=== PATIENT | female | born 1975 | race Hispanic/Latino ===

== ENCOUNTER 2020-02-28 06:37 | Inpatient (IN) | payer MEDICAID, OTHER ==
[~2020-02-28] VITALS: Ht 157.5 cm; Wt 83.0 kg
[~2020-02-28 06:37] MED LIST: PREN-147 PO
[2020-02-28 07:31] LABS: BASOPHILS % (AUTO) 0.3 % (0.0-5.0); HEMATOCRIT 27.5 % (36-48); LYMPHOCYTES % (AUTO) 21.7 % (21.0-51.0); MEAN CORPUSCULAR HEMOGLOBIN 23.5 pg (27.0-33.0); MEAN CORPUSCULAR VOLUME 73.3 fL (79-99); MONOCYTES % (AUTO) 7.1 % (3.0-13.0); NEUTROPHILS % (AUTO) 69.6 % (40.0-77.0); PLATELET COUNT (AUTO) 145 K/uL (130-400); RED BLOOD CELL COUNT(AUTO) 3.75 MIL/uL (4.00-5.50); RED CELL DISTRIBUTION WIDTH 16.1 % (11.0-15.5)
[2020-02-28 07:41] LABS: RAPID GROUP A STREP NEGATIVE (NEGATIVE)
[2020-02-28] MEDS ORDERED: ACETAMINOPHEN EXTRA STRENGTH 500 MG TABLET ONE (07:43)
[2020-02-28 07:44] LABS: INR 1.06 (0.85-1.15); PARTIAL THROMBOPLASTIN TIME 29.4 SEC (26.3-35.5); PROTHROMBIN TIME 11.4 SEC (9.6-11.6)
[2020-02-28 07:51] LABS: ALANINE AMINOTRANSFERASE 60 U/L (12-78); ALBUMIN 3.5 g/dL (3.5-5.0); ASPARTATE AMINOTRANSFERASE 58 U/L (10-37); BILIRUBIN,TOTAL 0.6 mg/dL (0.2-1.0); CARBON DIOXIDE 23 mmol/L (21-32); CHLORIDE 95 mmol/L (101-111); CREATINE KINASE, TOTAL 71 U/L (21-232); CREATININE 1.1 mg/dL (0.5-1.5); GLOMERULAR FILTR. RATE CALC 58 mL/min (>60); GLUCOSE,RANDOM 126 mg/dL (70-105); MYOGLOBIN 28 ng/mL (10-92); SODIUM SERUM 129 mmol/L (136-145); TOTAL PROTEIN, SERUM 7.6 g/dL (6.0-8.3); TROPONIN I < 0.04 ng/mL (0.00-0.06); UREA NITROGEN, BLOOD 13 mg/dL (7-18)
[2020-02-28 08:08] LABS: POTASSIUM 2.8 mmol/L (3.5-5.1)
[2020-02-28 08:14] LABS: APPEARANCE,URINE Cloudy (CLEAR); BILIRUBIN,URINE Small (NEGATIVE); COLOR,URINE Dark Yellow (YELLOW); GLUCOSE, URINE (UA) Negative (NEGATIVE); KETONES,URINE 15 mg/dL (NEGATIVE); LEUKOCYTE ESTERASE ,URINE Small (NEGATIVE); NITRATE,URINE Negative (NEGATIVE); OCCULT BLOOD,URINE Negative (NEGATIVE); PROTEIN,URINE POS 2+ mg/dL (NEGATIVE)
[2020-02-28] MEDS ORDERED: POTASSIUM CHLORIDE 20 MEQ ERTAB PO ONE (08:23)
[2020-02-28 08:27] LABS: BACTERIA,URINE Few /HPF (None Seen); RBC,URINE 0-1 /HPF (0-1)
[2020-02-28] MEDS ORDERED: CEFTRIAXONE SODIUM 1 GM ONE (09:05)
[2020-02-28] MEDS ORDERED: AZITHROMYCIN 500MG+NS 250ML 250 ML IV ONE (09:06)
[2020-02-28] MEDS ORDERED: DiphenhydrAMINE HCL 50 MG/ML VIAL IV PRN (10:00)
[2020-02-28] MEDS ORDERED: MAG HYDROX/AL HYDROX/SIMETH ES 30 ML SUSP UDCUP PO PRN (10:00)
[2020-02-28] MEDS ORDERED: LACTULOSE 20 GM/30 ML UDCUP PO PRN (10:00)
[2020-02-28] MEDS ORDERED: ONDANSETRON HCL 4 MG/2 ML VIAL IV PRN (10:00)
[2020-02-28] MEDS ORDERED: DIPHENHYDRAMINE HCL 25 MG CAPSULE PO PRN (10:00)
[2020-02-28] MEDS ORDERED: NITROGLYCERIN 0.4 MG SL TAB SL PRN (10:00)
[2020-02-28] MEDS ORDERED: AZITHROMYCIN 500MG+NS 250ML 250 ML IV SCH (10:00)
[2020-02-28] MEDS ORDERED: ENOXAPARIN SODIUM 30 MG/0.3 ML SQ ONE (10:46)
[2020-02-28] MEDS ORDERED: FAMOTIDINE/PF 20 MG/2 ML VIAL IV ONE (10:46)
[2020-02-28] MEDS ORDERED: FAMOTIDINE 20MG TAB 20 MG TAB ONE (10:48)
[2020-02-28 11:00] LABS: CRP QUANTITATIVE 149.8 mg/L (0.00-9.0); MAGNESIUM 1.8 mg/dL (1.80-2.40); PHOSPHORUS 2.8 mg/dL (2.5-4.9)
[2020-02-28 12:45] VITALS: BP 113/80
[2020-02-28] MEDS: LACTATED RINGERS 1000ML 1,000 ML IV SCH ×2 (13:00→19:47)
[2020-02-28] MEDS ORDERED: PHARMACY COMMUNICATION MISC SCH (14:15)
[2020-02-28 15:35] VITALS: BP 119/78
--- NOTE | 2020-02-28 17:13 | NUR ---
CM NOTE/IA PATIENT UNDER INVESTIGATION TO RULE OUT COVID, CALLED SPOUSE. PER SPOUSE, PATIENT LIVES WITH HIM AND 8 OF THEIR CHILDREN (2 ADULT AND 6 MINORS), IS INDEPENDENT WITH ADLS, NO DME IN USE AND FEELS SAFE TO RETURN HOME. CM TO FOLLOW UP FOR SELF REFERRAL AND GOOD RX COUPONS. Addendum: 02/28/20 at 1715 by RICH RIVER RN CM Amended: Links added.
[2020-02-28 19:15] VITALS: BP 110/76
[2020-02-28] MEDS: FAMOTIDINE 20MG TAB 20 MG TAB PO SCH (19:48)
[2020-02-28] MEDS: CEFTRIAXONE SODIUM 1 GM IV SCH (19:48)
[2020-02-28] MEDS: ACETAMINOPHEN 325 MG TAB PO PRN (19:50)
[2020-02-28] MEDS ORDERED: DOXYCYCLINE 100MG+NS 250ML 250 ML IV SCH (20:45)
[2020-02-28 21:24] LABS: CREATININE 0.7 mg/dL (0.5-1.5); POTASSIUM 3.1 mmol/L (3.5-5.1)
[2020-02-28] MEDS: DOXYCYCLINE HYCLATE 100 MG TABLET PO SCH (21:27)
[2020-02-28 23:02] VITALS: BP 112/75
--- NOTE | 2020-02-28 23:30 | NUR ---
transfered patient to 402, pt is axo4, stable, no complains of being in distress or in any pain upon transfer, report given to [facility]
[2020-02-29] VITALS (7 sets, daily range): BP systolic 98–139; BP diastolic 56–82
[2020-02-29] MEDS: ACETAMINOPHEN 325 MG TAB PO PRN ×2 (01:40→12:32)
[2020-02-29 04:55] LABS: BASOPHILS % (AUTO) 0.5 % (0.0-5.0); HEMATOCRIT 24.4 % (36-48); LYMPHOCYTES % (AUTO) 28.3 % (21.0-51.0); MEAN CORPUSCULAR HEMOGLOBIN 23.6 pg (27.0-33.0); MEAN CORPUSCULAR VOLUME 73.7 fL (79-99); MONOCYTES % (AUTO) 5.5 % (3.0-13.0); NEUTROPHILS % (AUTO) 64.9 % (40.0-77.0); PLATELET COUNT (AUTO) 129 K/uL (130-400); RED BLOOD CELL COUNT(AUTO) 3.31 MIL/uL (4.00-5.50); RED CELL DISTRIBUTION WIDTH 16.4 % (11.0-15.5)
[2020-02-29 05:11] LABS: ALBUMIN 2.8 g/dL (3.5-5.0); BILIRUBIN,TOTAL 0.4 mg/dL (0.2-1.0); CREATININE 0.8 mg/dL (0.5-1.5); POTASSIUM 3.1 mmol/L (3.5-5.1); TOTAL PROTEIN, SERUM 6.4 g/dL (6.0-8.3)
[2020-02-29] MEDS: LACTATED RINGERS 1000ML 1,000 ML IV SCH ×2 (05:55→12:33)
[2020-02-29 08:25] LABS: RAPID PLASMA REAGIN NONREACTIVE (NONREACTIVE)
[2020-02-29] MEDS ORDERED: AZITHROMYCIN 500MG+NS 250ML 250 ML IV SCH (09:00)
[2020-02-29] MEDS ORDERED: BENZONATATE 100 MG CAPSULE PO PRN (10:00)
[2020-02-29] MEDS: CEFTRIAXONE SODIUM 1 GM IV SCH ×2 (12:30→21:06)
[2020-02-29] MEDS: FAMOTIDINE 20MG TAB 20 MG TAB PO SCH ×2 (12:31→21:07)
[2020-02-29] MEDS: DOXYCYCLINE HYCLATE 100 MG TABLET PO SCH ×2 (12:32→21:07)
[2020-02-29] MEDS: ENOXAPARIN SODIUM 30 MG/0.3 ML SQ SCH (12:41)
--- NOTE | 2020-02-29 16:43 | NUR ---
CM NOTE INSTRUCTED ON SELF PACKETS AND GOOD RX, GIVEN TO PATIENT, PATIENT VERBALIZED UNDERSTANDING OF INFORMATION.
[2020-02-29] MEDS ORDERED: POTASSIUM CHLORIDE 10% ELIXIR 20 MEQ/15 ML UDCUP PO PRN (20:00)
[2020-02-29] MEDS ORDERED: POTASSIUM CHLORIDE 20MEQ/100ML 100 ML IV PRN ×2 (20:00)
[2020-02-29] MEDS: POTASSIUM CHLORIDE 20 MEQ ERTAB PO PRN (21:06)
[2020-03-01] VITALS (10 sets, daily range): BP systolic 101–130; BP diastolic 56–89
[2020-03-01 04:25] LABS: BASOPHILS % (AUTO) 0.2 % (0.0-5.0); EOSINOPHILS % (AUTO) 0.2 % (0.0-8.0); HEMATOCRIT 24.8 % (36-48); LYMPHOCYTES % (AUTO) 24.9 % (21.0-51.0); MEAN CORPUSCULAR HEMOGLOBIN 23.7 pg (27.0-33.0); MEAN CORPUSCULAR HGB CONC 32.3 g/dL (32.0-36.0); MEAN CORPUSCULAR VOLUME 73.4 fL (79-99); MONOCYTES % (AUTO) 5.6 % (3.0-13.0); NEUTROPHILS % (AUTO) 68.6 % (40.0-77.0); PLATELET COUNT (AUTO) 190 K/uL (130-400); RED BLOOD CELL COUNT(AUTO) 3.38 MIL/uL (4.00-5.50); RED CELL DISTRIBUTION WIDTH 16.1 % (11.0-15.5); WHITE BLOOD COUNT (AUTO) 5.7 K/uL (4.8-10.8)
[2020-03-01 05:19] LABS: BILIRUBIN,TOTAL 0.3 mg/dL (0.2-1.0); CREATININE 0.8 mg/dL (0.5-1.5); CRP QUANTITATIVE 134.1 mg/L (0.00-9.0); POTASSIUM 3.5 mmol/L (3.5-5.1); TOTAL PROTEIN, SERUM 6.9 g/dL (6.0-8.3)
[2020-03-01] MEDS: LACTATED RINGERS 1000ML 1,000 ML IV SCH (08:51)
[2020-03-01] MEDS: CEFTRIAXONE SODIUM 1 GM IV SCH ×2 (08:51→20:26)
[2020-03-01] MEDS: FAMOTIDINE 20MG TAB 20 MG TAB PO SCH ×2 (08:52→20:26)
[2020-03-01] MEDS: DOXYCYCLINE HYCLATE 100 MG TABLET PO SCH ×2 (08:52→20:26)
[2020-03-01] MEDS: ACETAMINOPHEN 325 MG TAB PO PRN (08:53)
[2020-03-01] MEDS: POTASSIUM CHLORIDE 20 MEQ ERTAB PO PRN (08:53)
[2020-03-01] MEDS: ENOXAPARIN SODIUM 30 MG/0.3 ML SQ SCH (09:01)
[2020-03-01] MEDS ORDERED: MORPHINE SULFATE 2 MG/ML 1ML SYG IVP SCH (11:45)
[2020-03-01] MEDS: BUTALB/ACETAMINOPHEN/CAFFEINE 1 EACH TABLET PO PRN (20:26)
[2020-03-02] VITALS (8 sets, daily range): BP systolic 112–125; BP diastolic 61–85
[2020-03-02 03:50] LABS: BASOPHILS % (AUTO) 0.3 % (0.0-5.0); EOSINOPHILS % (AUTO) 1.4 % (0.0-8.0); HEMATOCRIT 25.2 % (36-48); LYMPHOCYTES % (AUTO) 35.7 % (21.0-51.0); MEAN CORPUSCULAR HEMOGLOBIN 23.2 pg (27.0-33.0); MEAN CORPUSCULAR HGB CONC 31.3 g/dL (32.0-36.0); MEAN CORPUSCULAR VOLUME 73.9 fL (79-99); NEUTROPHILS % (AUTO) 54.9 % (40.0-77.0); PLATELET COUNT (AUTO) 198 K/uL (130-400); RED BLOOD CELL COUNT(AUTO) 3.41 MIL/uL (4.00-5.50); RED CELL DISTRIBUTION WIDTH 16.4 % (11.0-15.5); WHITE BLOOD COUNT (AUTO) 5.8 K/uL (4.8-10.8)
[2020-03-02 04:28] LABS: ALBUMIN 2.9 g/dL (3.5-5.0); BILIRUBIN,TOTAL 0.3 mg/dL (0.2-1.0); CREATININE 0.8 mg/dL (0.5-1.5); CRP QUANTITATIVE 114.3 mg/L (0.00-9.0); POTASSIUM 3.4 mmol/L (3.5-5.1); TOTAL PROTEIN, SERUM 6.8 g/dL (6.0-8.3)
[2020-03-02] MEDS: POTASSIUM CHLORIDE 20 MEQ ERTAB PO PRN (06:34)
[2020-03-02] MEDS: CEFTRIAXONE SODIUM 1 GM IV SCH ×2 (08:28→20:08)
[2020-03-02] MEDS: DOXYCYCLINE HYCLATE 100 MG TABLET PO SCH ×2 (08:28→20:08)
[2020-03-02] MEDS: FAMOTIDINE 20MG TAB 20 MG TAB PO SCH ×2 (08:29→20:08)
[2020-03-02] MEDS: ENOXAPARIN SODIUM 30 MG/0.3 ML SQ SCH (08:29)
[2020-03-02] MEDS: BUTALB/ACETAMINOPHEN/CAFFEINE 1 EACH TABLET PO PRN (16:50)
[2020-03-03] VITALS: BP 122/85
[2020-03-03 04:00] VITALS: BP 116/68
[2020-03-03 04:26] LABS: CRP QUANTITATIVE 72.2 mg/L (0.00-9.0)
[2020-03-03 07:00] VITALS: BP 108/68
[2020-03-03 08:42] LABS: HEMATOCRIT 25.6 % (36-48); MEAN CORPUSCULAR HEMOGLOBIN 23.7 pg (27.0-33.0); MEAN CORPUSCULAR HGB CONC 31.6 g/dL (32.0-36.0); MEAN CORPUSCULAR VOLUME 74.9 fL (79-99); NUCLEATED RED BLOOD CELLS 0.3 % (0.0-0.19); RED BLOOD CELL COUNT(AUTO) 3.42 MIL/uL (4.00-5.50); RED CELL DISTRIBUTION WIDTH 16.6 % (11.0-15.5)
[2020-03-03 09:01] LABS: CREATININE 0.8 mg/dL (0.5-1.5); POTASSIUM 3.5 mmol/L (3.5-5.1)
[2020-03-03] MEDS: FAMOTIDINE 20MG TAB 20 MG TAB PO SCH (09:01)
[2020-03-03] MEDS: CEFTRIAXONE SODIUM 1 GM IV SCH (09:01)
[2020-03-03] MEDS: DOXYCYCLINE HYCLATE 100 MG TABLET PO SCH (09:01)
[2020-03-03 09:06] LABS: BILIRUBIN,TOTAL 0.2 mg/dL (0.2-1.0); TOTAL PROTEIN, SERUM 6.6 g/dL (6.0-8.3)
[2020-03-03] MEDS: ENOXAPARIN SODIUM 30 MG/0.3 ML SQ SCH (09:07)
[2020-03-03 11:00] VITALS: BP 111/77
[2020-03-03] MEDS ORDERED: CEFD300C3 PO (12:27)
[2020-03-03] MEDS ORDERED: DOXY100T21 PO (12:27)
[2020-03-06 10:06] LABS: ROCKY MT SPOTTED FEVER IGG SEE SEPARATE REPORT (Neg:<1:64); TYPHUS FEVER AB IGG SEE SEPARATE REPORT (Neg:<1:64)
== END 2020-03-03 15:59 | disposition home or self-care (01) | DRG 871 ==
LOC: EDH 06:37 → EDHIP 06:38 → 2DH 12:59 → 4AH 23:40
PROVIDERS: ADMIT Family Medicine; ATTEND Family Medicine
DX: A41.9 Sepsis, unspecified organism (principal); J18.9 Pneumonia, unspecified organism; E87.1 Hypo-osmolality and hyponatremia; D61.818 Other pancytopenia; J98.11 Atelectasis; A75.9 Typhus fever, unspecified; E87.6 Hypokalemia; R65.20 Severe sepsis without septic shock; R53.81 Other malaise; Z20.828 Contact with and (suspected) exposure to other viral communicable diseases; D71 Functional disorders of polymorphonuclear neutrophils; E66.9 Obesity, unspecified; Z68.34 Body mass index [BMI] 34.0-34.9, adult
CPT/HCPCS: 36415; 71045; 71046; 71250; 78582; 80048; 80053; 81001; 81025; 82550; 82728; 83540; 83550; 83605; 83615; 83735; 83874; 83880; 84100; 84132; 84145; 84484; 85025; 85027; 85378; 85384; 85610; 85730; 86140; 86592; 86701; 86738; 86757; 87040; 87088; 87390; 87449; 87633; 87635; 87804; 87880; 93005; A9540; A9558; G0378; J0456; J0696; J1650; J3490; J7120; U0003

== ENCOUNTER 2020-10-23 19:09 | Inpatient (IN) | payer MEDICAID, OTHER ==
[~2020-10-23] VITALS: Ht 160 cm; Wt 85.7 kg
[~2020-10-23 19:09] MED LIST changes: +CEFD300C3 PO; +DOXY100T21 PO
[2020-10-23 20:09] LABS: BASOPHILS % (AUTO) 0.4 % (0.0-5.0); EOSINOPHILS % (AUTO) 0.7 % (0.0-8.0); HEMATOCRIT 30.8 % (36-48); LYMPHOCYTES % (AUTO) 26.6 % (21.0-51.0); MEAN CORPUSCULAR HEMOGLOBIN 20.8 pg (27.0-33.0); MEAN CORPUSCULAR HGB CONC 29.9 g/dL (32.0-36.0); MEAN CORPUSCULAR VOLUME 69.5 fL (79-99); MONOCYTES % (AUTO) 4.4 % (3.0-13.0); NEUTROPHILS % (AUTO) 66.8 % (40.0-77.0); NUCLEATED RED BLOOD CELLS 0.7 % (0.0-0.19); PLATELET COUNT (AUTO) 202 K/uL (130-400); RED BLOOD CELL COUNT(AUTO) 4.43 MIL/uL (4.00-5.50); RED CELL DISTRIBUTION WIDTH 19.2 % (11.0-15.5); WHITE BLOOD COUNT (AUTO) 8.5 K/uL (4.8-10.8)
[2020-10-23 20:29] LABS: CREATININE 0.9 mg/dL (0.5-1.5)
[2020-10-23 20:33] LABS: ALBUMIN 2.1 g/dL (3.5-5.0); BILIRUBIN,TOTAL 0.3 mg/dL (0.2-1.0); TOTAL PROTEIN, SERUM 6.9 g/dL (6.0-8.3)
[2020-10-23] MEDS ORDERED: HYDRALAZINE HCL 20 MG/ML VIAL ONE (20:54)
[2020-10-23] MEDS ORDERED: MAGNESIUM 2GM PREMIX 50ML 50 ML IV ONE (20:56)
[2020-10-23 21:19] LABS: APPEARANCE,URINE Clear (CLEAR); BILIRUBIN,URINE Negative (NEGATIVE); COLOR,URINE Yellow (YELLOW); GLUCOSE, URINE (UA) Negative (NEGATIVE); KETONES,URINE Negative (NEGATIVE); LEUKOCYTE ESTERASE ,URINE Small (NEGATIVE); NITRATE,URINE Negative (NEGATIVE); OCCULT BLOOD,URINE Negative (NEGATIVE); PROTEIN,URINE 300 mg/dL (NEGATIVE)
[2020-10-23] MEDS ORDERED: MAGNESIUM 4 GM IV ONE (21:21)
[2020-10-23 21:35] VITALS: BP 165/90
[2020-10-23 21:36] LABS: BACTERIA,URINE Few /HPF (None Seen); RBC,URINE None Seen /HPF (0-1)
[2020-10-23 21:37] LABS: INR 0.85 (0.85-1.15); PROTHROMBIN TIME 9.4 SEC (9.6-11.6)
[2020-10-23 21:38] LABS: AMPHET/METH SCREEN,URINE NEGATIVE (NEGATIVE); BARBITURATE SCREEN, URINE NEGATIVE (NEGATIVE); BENZODIAZEPINES SCREEN,URINE NEGATIVE (NEGATIVE); CANNABINOID SCREEN,URINE NEGATIVE (NEGATIVE); COCAINE SCREEN,URINE NEGATIVE (NEGATIVE); OPIATE SCREEN,URINE NEGATIVE (NEGATIVE); PHENCYCLIDINE SCREEN,URINE NEGATIVE (NEGATIVE)
[2020-10-23 21:38] LABS: PARTIAL THROMBOPLASTIN TIME 26.2 SEC (26.3-35.5)
[2020-10-23] MEDS ORDERED: ENOXAPARIN SODIUM 40 MG/0.4 ML SYRINGE SQ SCH ×2 (22:00→23:45)
[2020-10-23] MEDS ORDERED: MAGNESIUM SULFATE 1,000 ML IV PRN (22:30)
[2020-10-23] MEDS ORDERED: CELESTONE SOLUSPAN 6 MG/ML 5ML VIAL IM SCH (22:30)
[2020-10-23] MEDS ORDERED: CALCIUM GLUCONATE 1 GM/10 ML VIAL IV PRN (22:30)
[2020-10-23] MEDS ORDERED: MAGNESIUM 4GM PREMIX 100ML 100 ML IV PRN (22:30)
[2020-10-23] MEDS ORDERED: LACTATED RINGERS 1000ML 1,000 ML IV SCH (22:30)
[2020-10-23] MEDS ORDERED: LABETALOL HCL 100 MG TABLET ONE (23:22)
[2020-10-23] MEDS ORDERED: ENOXAPARIN SODIUM 40 MG/0.4 ML SYRINGE SQ ONE (23:25)
[2020-10-23] MEDS ORDERED: LABETALOL HCL 100 MG TABLET PO ONE (23:30)
[2020-10-24] MEDS ORDERED: ACETAMINOPHEN EXTRA STRENGTH 500 MG TABLET ONE (05:53)
[2020-10-24] MEDS ORDERED: ACETAMINOPHEN EXTRA STRENGTH 500 MG TABLET PO PRN (06:00)
[2020-10-24] MEDS ORDERED: LABETALOL HCL 100 MG TABLET ONE (09:22)
[2020-10-24] MEDS ORDERED: LABETALOL HCL 100 MG TABLET PO SCH (09:41)
[2020-10-25 07:14] LABS: HEPATITIS Bs ANTIGEN SCREEN P Negative (Negative)
== END 2020-10-24 11:30 | disposition short-term general hospital (02) | DRG 833 ==
LOC: EDH 19:09 → OBSVTOIN 19:10 → LDH 19:10
PROVIDERS: ADMIT Obstetrics & Gynecology; ATTEND Obstetrics & Gynecology
DX: O13.2 Gestational [pregnancy-induced] hypertension without significant proteinuria, second trimester (principal); O99.212 Obesity complicating pregnancy, second trimester; E66.9 Obesity, unspecified; Z3A.27 27 weeks gestation of pregnancy
CPT/HCPCS: 36415; 76805; 80053; 80305; 81001; 83735; 84550; 84702; 85025; 85384; 85610; 85730; 86592; 86701; 86850; 86900; 86901; 87088; 87340; 87390; 93306; 93356; 93970; A4314; G0378; J0360; J0702; J1650; J3475; J7120

== ENCOUNTER 2022-08-28 20:11 | Emergency (ER) | payer MEDICAID, OTHER ==
[~2022-08-28] VITALS: Ht 160 cm; Wt 84.4 kg
[2022-08-28] MEDS ORDERED: AMOX875T2 PO (23:11)
[2022-08-28] MEDS ORDERED: SULF1TAB42 PO (23:11)
[2022-08-29 00:33] VITALS: BP 139/88
== END 2022-08-29 00:34 | disposition home or self-care (01) ==
LOC: EDH 20:11
DX: L89.899 Pressure ulcer of other site, unspecified stage (principal); I10 Essential (primary) hypertension; Z79.899 Other long term (current) drug therapy